=== PATIENT | male | born 1955 | race Two or more races ===

== ENCOUNTER 2020-07-03 08:49 | Emergency (ER) | payer MEDICAID ==
[~2020-07-03] VITALS: Ht 162.6 cm; Wt 65.8 kg
--- NOTE | 2020-07-03 09:24 | NUR ---
DANIELLE VAZQUEZ FROM THE STREETS TO ED BED 01. PER EMS REPORT, T STARTED C/O EPIGASTRIC AREA PAIN SINCE YESTERDAY. 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 GOWNED AND PLACED ON MONITOR. 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 AWAITING MD QUINN.
--- NOTE | 2020-07-03 09:26 | NUR ---
DR BELTRAN AT BEDSIDE FOR EVAL.
[2020-07-03] MEDS ORDERED: MAG HYDROX/AL HYDROX/SIMETH 30 ML UDC PO ONE (09:30)
[2020-07-03] MEDS ORDERED: LIDOCAINE VISCOUS 2% UD 15 ML UDC MM ONE (09:30)
--- NOTE | 2020-07-03 09:35 | NUR ---
IV LINE STARTED. CALLED LAB FOR SPECIMEN GRID TRIMMER
[2020-07-03] MEDS ORDERED: LIDOCAINE VISCOUS 2% UD 15 ML UDC ONE (09:36)
[2020-07-03] MEDS ORDERED: MAG HYDROX/AL HYDROX/SIMETH 30 ML UDC ONE (09:36)
[2020-07-03 09:55] LABS: BASOPHILS % (AUTO) 0.4 % (0.0-2.0); EOSINOPHILS % (AUTO) 0.1 % (0.0-6.0); HEMATOCRIT 44 % (39-51); LYMPHOCYTES # (AUTO) 0.8 /CMM (0.8-4.8); LYMPHOCYTES % (AUTO) 6.2 % (20.0-44.0); MEAN CORPUSCULAR HGB CONC 32 g/dl (31.0-36.0); MEAN CORPUSCULAR VOLUME 86 fL (80-96); MONOCYTES # (AUTO) 0.7 /CMM (0.1-1.30); MONOCYTES % (AUTO) 5.7 % (2.0-12.0); NEUTROPHILS # (AUTO) 11.2 /CMM (1.8-8.9); NEUTROPHILS % (AUTO) 87.6 % (43.0-81.0); PLATELET COUNT (AUTO) 265 /CMM (150-450); RED BLOOD CELL COUNT(AUTO) 5.12 MIL/uL (4.5-6.0); WHITE BLOOD COUNT (AUTO) 12.8 K/uL (4.3-11.0)
[2020-07-03] MEDS ORDERED: KETOROLAC TROMETHAMINE INJ 30 MG/ML VIAL IM ONE (10:00)
[2020-07-03 10:02] LABS: CALCIUM, SERUM 9.3 mg/dL (8.5-10.1); CREATININE 1.2 mg/dL (0.6-1.3); POTASSIUM 3.8 mmol/L (3.5-5.1)
[2020-07-03 10:09] LABS: ALBUMIN 3.9 g/dL (3.4-5.0); BILIRUBIN,DIRECT 0.1 mg/dL (0.0-0.2); BILIRUBIN,TOTAL 0.4 mg/dL (0.2-1.0)
[2020-07-03 11:04] VITALS: BP 165/99
--- NOTE | 2020-07-03 11:04 | NUR ---
Patient discharged to home in stable condition. Written and verbal after care instructions given. Patient verbalizes understanding of instruction.IV removed. Catheter intact and site benign. Pressure and 4x4 applied to site. No bleeding noted.
== END 2020-07-03 11:04 | disposition home or self-care (01) ==
LOC: ER 08:53
DX: R10.13 Epigastric pain (principal); R11.10 Vomiting, unspecified
CPT/HCPCS: 36415; 71045-TC; 80048-TC; 80076-TC; 83690-TC; 85025-TC; 85730-TC

== ENCOUNTER 2021-04-02 08:17 | Emergency (ER) | payer MEDICAID ==
[~2021-04-02] VITALS: Ht 162.6 cm; Wt 64.4 kg
--- NOTE | 2021-04-02 08:25 | NUR ---
BIB 839 PICKED UP FROM [facility] C/O ABDOMINAL PAIN 08/28 X1DAY, VOMITED DARK RED 30MINS OPTIONS ADVISOR. NO VOMITING AT THIS TIME. ABDOMEN SOFT AND NON-DISTENDED. RESPIRATION REGULAR AND UNLABORED. WILL CONTINUE TO MONITOR THE PATIENT. ATTACHED TO THE MONITOR.
--- NOTE | 2021-04-02 08:26 | NUR ---
DR CORTEZ AT THE BEDSIDE
--- NOTE | 2021-04-02 08:48 | NUR ---
X-RAY TECH AT THE BEDSIDE
--- NOTE | 2021-04-02 08:48 | NUR ---
STARTED IV, BLOOD SPECIMEN COLLECTED AND SENT TO THE LAB. THE LINE IS SALINE LOCKED.
[2021-04-02] MEDS ORDERED: ONDANSETRON HCL/PF 4 MG/2 ML VIAL ONE (08:50)
[2021-04-02] MEDS ORDERED: LIDOCAINE VISCOUS 2% UD 15 ML UDC ONE (08:50)
[2021-04-02] MEDS ORDERED: PANTOPRAZOLE 40 MG VIAL ONE (08:50)
--- NOTE | 2021-04-02 08:50 | NUR ---
URINE COLLECTED AND SENT TO LAB
[2021-04-02] MEDS ORDERED: MAG HYDROX/AL HYDROX/SIMETH 30 ML UDC ONE (08:51)
[2021-04-02 08:53] LABS: HEMOGLOBIN 13.9 g/dL (13.5-17.5); MEAN CORPUSCULAR HGB CONC 32 g/dl (31.0-36.0)
[2021-04-02] MEDS ORDERED: MAG HYDROX/AL HYDROX/SIMETH 30 ML UDC PO ONE (09:00)
[2021-04-02] MEDS ORDERED: LIDOCAINE VISCOUS 2% UD 15 ML UDC MM ONE (09:00)
[2021-04-02] MEDS ORDERED: PANTOPRAZOLE 40 MG VIAL IV ONE (09:00)
[2021-04-02] MEDS ORDERED: IV NS 0.9% 1,000 ML BAG IV ONE (09:00)
[2021-04-02] MEDS ORDERED: ONDANSETRON HCL/PF 4 MG/2 ML VIAL IVP ONE (09:00)
[2021-04-02 09:06] LABS: BASOPHILS # (AUTO) 0.1 K/uL (0.0-0.2); BASOPHILS % (AUTO) 0.4 % (0.0-2.0); EOSINOPHILS % (AUTO) 0.1 % (0.0-6.0); HEMATOCRIT 44 % (39-51); LYMPHOCYTES # (AUTO) 1.1 K/uL (0.8-4.8); MEAN CORPUSCULAR VOLUME 84 fL (80-96); MONOCYTES # (AUTO) 0.7 K/uL (0.1-1.30); MONOCYTES % (AUTO) 5.6 % (2.0-12.0); NEUTROPHILS # (AUTO) 10.9 K/uL (1.8-8.9); NEUTROPHILS % (AUTO) 84.9 % (43.0-81.0); PLATELET COUNT (AUTO) 358 K/uL (150-450); RED BLOOD CELL COUNT(AUTO) 5.25 MIL/uL (4.5-6.0); WHITE BLOOD COUNT (AUTO) 12.8 K/uL (4.3-11.0)
[2021-04-02 09:17] LABS: ALBUMIN 3.8 g/dL (3.4-5.0); BILIRUBIN,DIRECT 0.1 mg/dL (0.0-0.2); BILIRUBIN,TOTAL 0.2 mg/dL (0.2-1.0); CALCIUM, SERUM 9.6 mg/dL (8.5-10.1); CREATININE 1.6 mg/dL (0.6-1.3); POTASSIUM 4.3 mmol/L (3.5-5.1); TOTAL PROTEIN, SERUM 8.2 g/dL (6.4-8.2)
[2021-04-02] MEDS ORDERED: PANT20TA2 PO (09:44)
[2021-04-02] MEDS ORDERED: ONDA4TAB5 PO (09:44)
[2021-04-02 10:00] LABS: OCCULT BLOOD STOOL NEGATIVE (NEGATIVE)
--- NOTE | 2021-04-02 10:00 | NUR ---
US TECH AT THE BEDSIDE
--- NOTE | 2021-04-02 11:26 | NUR ---
IV removed. Catheter intact and site benign. Pressure and 4x4 applied to site. No bleeding noted.Patient discharged to home in stable condition. Written and verbal after care instructions given. Patient verbalizes understanding of instruction.
[2021-04-02 11:27] VITALS: BP 141/85
== END 2021-04-02 11:30 | disposition home or self-care (01) ==
LOC: ER 08:19
DX: R10.13 Epigastric pain (principal); R11.2 Nausea with vomiting, unspecified; N28.9 Disorder of kidney and ureter, unspecified; D72.829 Elevated white blood cell count, unspecified; F12.90 Cannabis use, unspecified, uncomplicated; Z79.899 Other long term (current) drug therapy
CPT/HCPCS: 36415; 71045; 76705; 80048; 80076; 80320; 82272; 83690; 85025; 85730; 86850; 93005; 96361; 96374; 96375; 99285; C9113; J2405; J7030; G0480

== ENCOUNTER 2021-12-16 07:50 | Inpatient (IN) | payer MEDICAID ==
[~2021-12-16] VITALS: Ht 162.6 cm; Wt 47.6 kg
[~2021-12-16 07:50] MED LIST: ONDA4TAB5 PO; PANT20TA2 PO
--- NOTE | 2021-12-16 08:05 | NUR ---
BIBRA 89 W/ C/O ABDOMINAL PAIN SINCE LAST NIGHT, RATED 7-8/10 PS. DENIES N/V/D. A/O X3. TO ER BED 12.
--- NOTE | 2021-12-16 08:09 | NUR ---
PHLEB AT BEDSIDE FOR BLOOD DRAW.
[2021-12-16 08:16] LABS: BASOPHILS % (AUTO) 0.2 % (0.0-2.0); EOSINOPHILS % (AUTO) 0.3 % (0.0-6.0); HEMATOCRIT 44 % (39-51); HEMOGLOBIN 13.9 g/dL (13.5-17.5); LYMPHOCYTES # (AUTO) 1.3 K/uL (0.8-4.8); LYMPHOCYTES % (AUTO) 14.4 % (20.0-44.0); MEAN CORPUSCULAR HGB CONC 32 g/dl (31.0-36.0); MEAN CORPUSCULAR VOLUME 82 fL (80-96); MONOCYTES # (AUTO) 0.5 K/uL (0.1-1.30); MONOCYTES % (AUTO) 6.2 % (2.0-12.0); NEUTROPHILS % (AUTO) 78.9 % (43.0-81.0); PLATELET COUNT (AUTO) 226 K/uL (150-450); RED BLOOD CELL COUNT(AUTO) 5.38 MIL/uL (4.5-6.0); WHITE BLOOD COUNT (AUTO) 8.8 K/uL (4.3-11.0)
[2021-12-16] MEDS ORDERED: PANTOPRAZOLE 40 MG VIAL ONE (08:21)
[2021-12-16] MEDS ORDERED: MAG HYDROX/AL HYDROX/SIMETH 30 ML UDC ONE (08:21)
[2021-12-16] MEDS ORDERED: ONDANSETRON HCL/PF 4 MG/2 ML VIAL ONE (08:21)
[2021-12-16] MEDS ORDERED: LIDOCAINE VISCOUS 2% UD 15 ML UDC ONE (08:22)
[2021-12-16] MEDS ORDERED: IV NS 0.9% 1,000 ML BAG IV ONE (08:30)
[2021-12-16] MEDS ORDERED: MAG HYDROX/AL HYDROX/SIMETH 30 ML UDC PO ONE (08:30)
[2021-12-16] MEDS ORDERED: PANTOPRAZOLE 40 MG VIAL IV ONE (08:30)
[2021-12-16] MEDS ORDERED: ONDANSETRON HCL/PF 4 MG/2 ML VIAL IVP ONE (08:30)
[2021-12-16] MEDS ORDERED: LIDOCAINE VISCOUS 2% UD 15 ML UDC MM ONE (08:30)
[2021-12-16 08:32] LABS: CALCIUM, SERUM 8.9 mg/dL (8.5-10.1); CREATININE 1.2 mg/dL (0.6-1.3); POTASSIUM 3.6 mmol/L (3.5-5.1)
[2021-12-16 08:39] LABS: ALBUMIN 3.8 g/dL (3.4-5.0); BILIRUBIN,DIRECT 0.1 mg/dL (0.0-0.2); BILIRUBIN,TOTAL 0.4 mg/dL (0.2-1.0); TOTAL PROTEIN, SERUM 8.2 g/dL (6.4-8.2)
[2021-12-16] MEDS ORDERED: IV NS 0.9% 1,000 ML IV ONE (09:30)
--- NOTE | 2021-12-16 10:28 | NUR ---
CLINICALS FAXED TO [facility]. FAX: [phone] PHONE: [phone]
--- NOTE | 2021-12-16 10:35 | NUR ---
COVID SWAB COLLECTED AND SENT TO LAB
--- NOTE | 2021-12-16 11:15 | NUR ---
DR. KEY ON THE PHONE WITH [facility] ([facility]UL[facility]OLD[facility]OMINA ALFREDITO SCHOFIELD MD.
--- NOTE | 2021-12-16 12:00 | NUR ---
FAXED PT CLINICALS TO [facility] FOR [facility] AWAITING A CALL BACK TO ALLOW FOR PT TRANSPORT.
[2021-12-16 12:10] LABS: BILIRUBIN,URINE NEGATIVE (NEGATIVE); COLOR,URINE YELLOW (YELLOW); LEUKOCYTE ESTERASE ,URINE NEGATIVE (NEGATIVE); NITRITE, URINE NEGATIVE (NEGATIVE); PROTEIN,URINE TRACE mg/dl (NEGATIVE); UGLUCOSE NEGATIVE (NEGATIVE); UROBILINOGEN,URINE 0.2 EU/dL (0.2)
[2021-12-16 13:30] LABS: BACTERIA,URINE None seen /HPF (None Seen); SQUAMOUS EPITHELIAL CELL,UR Rare /HPF (None Seen); WBC,URINE 0-2 /HPF (0-3)
--- NOTE | 2021-12-16 17:37 | NUR ---
GUSTAVO CALLED AND WAS NOTIFIED THAT THE PT STILL DOES NOT HAVE A BED AVAILABLE. SALESPERSON TERRAZZO TILES- [phone]
--- NOTE | 2021-12-16 21:37 | NUR ---
SPOKE TO OPHELIA, LOCOMOTIVE BOILERMAKER AND HAZEL A MESSAGE FOR SCAR TO CALL ME BACK FOR UPDATE
--- NOTE | 2021-12-16 21:47 | NUR ---
OKAY TO ADMIT TO [facility] BUT NO BED AT THIS TIME PER SCAR.
[2021-12-16] MEDS ORDERED: HYDROMORPHONE MDV 0.5 MG in IV D5W 50 ML IV PRN (22:30)
[2021-12-16] MEDS ORDERED: ACETAMINOPHEN 325 MG TABLET PO PRN (22:30)
[2021-12-16] MEDS ORDERED: ONDANSETRON HCL/PF 8 MG in IV D5W 50 ML IVP PRN (22:30)
[2021-12-16] MEDS ORDERED: HYDROCODONE/APAP 5/325MG TABLET PO PRN (22:30)
[2021-12-16] MEDS ORDERED: ZOLPIDEM TARTRATE 5 MG TABLET PO PRN (22:30)
--- NOTE | 2021-12-16 22:30 | NUR ---
PER PERFECTO PATIENT CAN GET ADMITTED W/ TRACKING # [id number]
--- NOTE | 2021-12-17 01:03 | NUR ---
ROOM 324-2
--- NOTE | 2021-12-17 01:11 | NUR ---
report given to rn
[2021-12-17 01:18] VITALS: BP 131/86
--- NOTE | 2021-12-17 01:18 | NUR ---
RN RECIEVING NOTE PATIENT RECEIVED FROM ER VIA [facility]. PATIENT WAS ABLE TO AMBULATE STEADILY TO BED AND BATHROOM. A/OX4. NO S/S OF DISTRESS, BREATHING W/O DIFFICULTY ON RM AIR. NO PAIN NOTED AT THIS TIME. SAFETY MEASURES IN PLACE: BED LOCKED IN PLACE, AT LOWEST POSITION, RAILS UP X2, CALL KC WITHIN REACH. PATIENT WAS ORIENTED TO THE UNIT. BELONGINGS LOGGED INTO SHEET AND PLACED IN CHART. PATIENT WAS GIVEN CALL KC AND INSTRUCTED ON ITS USE. PATIENT EDUCATED ON HIS DISEASE PROCESS AND EXPLAINED TO HIM TO WHY HE IS CURRENTLY NPO. PATIENT IS STABLE; VS WNL. WILL CONTINUE TO MONITOR THE PATIENT.
[2021-12-17 02:00] VITALS: BP 131/86
[2021-12-17] MEDS ORDERED: HYDROMORPHONE 1 MG/1 ML DISP.SYRIN IV PRN (02:00)
[2021-12-17] MEDS: IV D5 LR 1,000 ML IV PRN ×2 (04:59→16:55)
[2021-12-17 06:28] LABS: BASOPHILS % (AUTO) 0.5 % (0.0-2.0); EOSINOPHILS % (AUTO) 1.7 % (0.0-6.0); HEMATOCRIT 39 % (39-51); HEMOGLOBIN 12.7 g/dL (13.5-17.5); LYMPHOCYTES # (AUTO) 1.9 K/uL (0.8-4.8); LYMPHOCYTES % (AUTO) 21.7 % (20.0-44.0); MEAN CORPUSCULAR HGB CONC 32 g/dl (31.0-36.0); MEAN CORPUSCULAR VOLUME 81 fL (80-96); MONOCYTES # (AUTO) 0.6 K/uL (0.1-1.30); MONOCYTES % (AUTO) 7.1 % (2.0-12.0); NEUTROPHILS # (AUTO) 5.9 K/uL (1.8-8.9); PLATELET COUNT (AUTO) 174 K/uL (150-450); RED BLOOD CELL COUNT(AUTO) 4.87 MIL/uL (4.5-6.0); WHITE BLOOD COUNT (AUTO) 8.6 K/uL (4.3-11.0)
--- NOTE | 2021-12-17 06:45 | NUR ---
RN CLOSING NOTE PATIENT IS ASLEEP IN BED. A/OX4. NO S/S OF DISTRESS, BREATHING W/O DIFFICULTY ON ROOM AIR. RAC #18 INTACT AND PATENT W/ D5LR 125ML/HR. SAFETY MEASURES IN PLACE: BED LOCKED, AT LOWEST POSITION, RAILS UP X2, CALL KC WITHIN REACH. REPORT ENDORSED TO AND ACKNOWLEDGED BY DAY SHIFT NURSE FOR SHU.
[2021-12-17 06:49] LABS: BILIRUBIN,TOTAL 0.8 mg/dL (0.2-1.0); CALCIUM, SERUM 8.4 mg/dL (8.5-10.1); POTASSIUM 3.9 mmol/L (3.5-5.1); TOTAL PROTEIN, SERUM 6.8 g/dL (6.4-8.2)
[2021-12-17 07:10] LABS: CHOLESTEROL 206 mg/dL (<200); HDL CHOLESTEROL 54 mg/dL (40-60); LDL 121 mg/dL (0-99); TRIGLYCERIDES 136 mg/dL (30-150)
--- NOTE | 2021-12-17 07:25 | NUR ---
RN NOTE PT RECEIVED IN BED. PT IS A/OX3-4. ON ROOM AIR SHOWING NO S/SX OF RESP DISTRESS. SKIN INTACT. PT IS CURRENTLY NPO EXCEPT MEDS. IV ACCESS NOTED ON RIGHT AC #18 INFUSING D5LR AT 125CC/HR. ALL SAFETY MEASURES IMPLEMENTED. WILL CONTINUE TO MONITOR THROUGHOUT SHIFT.
[2021-12-17 08:00] VITALS: BP 112/48
--- NOTE | 2021-12-17 09:33 | NUR ---
SS consult requested for homelessness. SW will follow up at a later time.
[2021-12-17] MEDS: PANTOPRAZOLE 40 MG VIAL IV SCH (09:50)
[2021-12-17] MEDS ORDERED: IV NS 0.9% 250 ML IV ONE (11:26)
[2021-12-17] MEDS ORDERED: CT SWABBABLE VALVE TRANS SET 1 EA INFUS.SET MC ONE (11:26)
[2021-12-17] MEDS ORDERED: IOHEXOL-300 100 ML VIAL IV ONE (11:26)
--- NOTE | 2021-12-17 15:23 | NUR ---
SS received consult for homelessness. SW attempted to interview pt., but he asked to come back later. SW will follow-up at a later time.
[2021-12-17 16:00] VITALS: BP 142/92
[2021-12-17] MEDS: ENSURE CLEAR 237 ML LIQUID (MIX BERRY) PO SCH (17:10)
--- NOTE | 2021-12-17 18:41 | NUR ---
RN NOTE NO CHANGES IN PT CONDITION DURING SHIFT. PT IS A/OX3-4. ON ROOM AIR SHOWING NO S/SX OF RESP DISTRESS. PT WAS TAKEN DOWN EARLIER DURING DAY FOR CT OF ABDOMEN/PELVIS. PT NOW ON CLEAR LIQUID DIET. IV ACCESS NOTED ON RIGHT AC #18 INFUSING D5LR AT 125CC/HR. ALL SAFETY MEASURES IMPLEMENTED. WILL ENDORSE TO EVENING RN FOR SHU.
--- NOTE | 2021-12-17 19:50 | NUR ---
MS RN OPENING NOTES: RECEIVED PATIENT AWAKE IN BED, BED IN LOW POSITION CALL LIGHTS WITHIN REACH NO COMPLAIN OF PAIN AND DISCOMFORT AT THIS TIME, ON ROOM AIR SATURATING WELL, PATIENT WITH IV LINE AT RAC#18 WITH D5LR@125ML/HR INFUSING WELL, PATIENT KEPT CLEAN AND DRY ALL NEEDS MET WILL CONTINUE TO MONITOR.
[2021-12-17 20:00] VITALS: BP_SYST 121; BP_SYST 123; BP_DIAS 66; BP_DIAS 78
[2021-12-18] MEDS: IV D5 LR 1,000 ML IV PRN (01:44)
--- NOTE | 2021-12-18 06:17 | NUR ---
MS RN CLOSING NOTES: PATIENT SLEEP IN BED COMFORTABLY, AROUSABLE TO VERBAL STIMULI, BED IN LOW POSITION CALL LIGHTS WITHIN REACH, ON ROOM AIR SATURATING WELL, WITH ONGOING IV HYDRATION INFUSING WELL, PATIENT KEPT CLEAN AND DRY ALL NEEDS MET ENDORSE TO INCOMING SHIFT.
[2021-12-18 06:58] LABS: ALBUMIN 2.9 g/dL (3.4-5.0); BILIRUBIN,TOTAL 0.6 mg/dL (0.2-1.0); CALCIUM, SERUM 8.8 mg/dL (8.5-10.1); POTASSIUM 4.4 mmol/L (3.5-5.1); TOTAL PROTEIN, SERUM 6.5 g/dL (6.4-8.2)
[2021-12-18 07:15] LABS: BASOPHILS % (AUTO) 0.9 % (0.0-2.0); EOSINOPHILS % (AUTO) 4.8 % (0.0-6.0); HEMATOCRIT 38 % (39-51); HEMOGLOBIN 12.3 g/dL (13.5-17.5); LYMPHOCYTES # (AUTO) 1.8 K/uL (0.8-4.8); LYMPHOCYTES % (AUTO) 34.8 % (20.0-44.0); MEAN CORPUSCULAR HGB CONC 33 g/dl (31.0-36.0); MEAN CORPUSCULAR VOLUME 80 fL (80-96); MONOCYTES # (AUTO) 0.4 K/uL (0.1-1.30); MONOCYTES % (AUTO) 7.8 % (2.0-12.0); NEUTROPHILS # (AUTO) 2.7 K/uL (1.8-8.9); NEUTROPHILS % (AUTO) 51.7 % (43.0-81.0); PLATELET COUNT (AUTO) 174 K/uL (150-450); RED BLOOD CELL COUNT(AUTO) 4.69 MIL/uL (4.5-6.0); WHITE BLOOD COUNT (AUTO) 5.2 K/uL (4.3-11.0)
--- NOTE | 2021-12-18 07:30 | NUR ---
MS RN OPENING NOTES: RECEIVED PATIENT AWAKE IN BED, ALERT AND ORIENTED X 2. NO SOB OR CARDIAC DISTRESS NOTED, AFEBRILE, ON ROOM AIR AND TOLERATING WELL. DENIED PAIN AT THIS TIME, WITH IV LINE AT RAC#18 WITH D5LR@125ML/HR INFUSING WELL, SAFETY PRECAUTIONS MAINTAINED: BED IN LOWEST AND LOCKED POSITION, SIDE RAILS UP X 2, CALL LIGHT IN EASY REACH FOR PATIENT KEPT CLEAN AND DRY ALL NEEDS MET WILL CONTINUE TO MONITOR.
[2021-12-18 08:00] VITALS: BP 155/77
[2021-12-18] MEDS: ENSURE CLEAR 237 ML LIQUID (MIX BERRY) PO SCH (08:00)
[2021-12-18] MEDS: PANTOPRAZOLE 40 MG VIAL IV SCH (09:20)
--- NOTE | 2021-12-18 15:35 | NUR ---
DISCHARGE NOTES: PATIENT DC. A/O X 3 ABLE TO MAKE NEEDS KNOWN, NO SOB OR CARDIAC DISTRESS NOTED, AFEBRILE. VS WNL. REMOVED IV ACCESS ON LEFT HAAND AND SECURED WITH GAUZE AND TAPE. DISCHARGE INSTRUCTIONS GIVEN TO PATIENT AND INSTRUCTED TO FOLLOW UP WITH PCP, PATIENT VERBALIZED UNDERSTYANDING AND STATED "I WILL GO TO [facility] ON WEDNESDAY TO FOLLOW UP". COASTAL TUG MATE GAVE THE TAP CARD FOR TRANSPO. HOMELESS CHECKLIST DONE AND PT SIGNED. WHITE SHOE EXAMINER JUSTICE WHEELED PT OUT IN THE LOBBY,PT LEFT STABLE IN THE UNIT. IDENTIFICATION BAND REMOVED.
== END 2021-12-18 15:36 | disposition home or self-care (01) | DRG 282 ==
LOC: ER 07:52 → MED 12-17 01:06
PROVIDERS: ADMIT Internal Medicine; ATTEND Internal Medicine
DX: K85.90 Acute pancreatitis without necrosis or infection, unspecified (principal); Z20.822 Contact with and (suspected) exposure to COVID-19
CPT/HCPCS: 36415; 74178; 76705-TC; 80048-TC; 80053-TC; 80061-TC; 80076-TC; 81001; 82150-TC; 83690-TC; 85025-TC; 87081-TC; C9113; C9803; G0378; G0480; J2405; J3490; J7030; J7050; J7060; J7120; Q9967

== ENCOUNTER 2022-07-07 11:31 | Emergency (ER) | payer MEDICARE, OTHER ==
[~2022-07-07] VITALS: Ht 162.6 cm; Wt 52.2 kg
[2022-07-07] MEDS ORDERED: IV NS 0.9% 1,000 ML BAG IV ONE (12:00)
[2022-07-07] MEDS ORDERED: ONDANSETRON HCL/PF 4 MG/2 ML VIAL IVP ONE (12:00)
[2022-07-07] MEDS ORDERED: ONDANSETRON HCL/PF 4 MG/2 ML VIAL ONE (12:15)
[2022-07-07 12:41] LABS: BASOPHILS # (AUTO) 0.1 K/uL (0.0-0.2); BASOPHILS % (AUTO) 0.5 % (0.0-2.0); EOSINOPHILS % (AUTO) 0.8 % (0.0-6.0); HEMATOCRIT 47 % (39-51); HEMOGLOBIN 14.8 g/dL (13.5-17.5); LYMPHOCYTES # (AUTO) 1.2 K/uL (0.8-4.8); LYMPHOCYTES % (AUTO) 11.9 % (20.0-44.0); MEAN CORPUSCULAR HGB CONC 32 g/dl (31.0-36.0); MEAN CORPUSCULAR VOLUME 82 fL (80-96); MONOCYTES # (AUTO) 0.6 K/uL (0.1-1.30); MONOCYTES % (AUTO) 5.5 % (2.0-12.0); NEUTROPHILS # (AUTO) 8.4 K/uL (1.8-8.9); NEUTROPHILS % (AUTO) 81.3 % (43.0-81.0); PLATELET COUNT (AUTO) 342 K/uL (150-450); RED BLOOD CELL COUNT(AUTO) 5.67 MIL/uL (4.5-6.0); WHITE BLOOD COUNT (AUTO) 10.3 K/uL (4.3-11.0)
[2022-07-07 12:57] LABS: ALBUMIN 3.7 g/dL (3.4-5.0); BILIRUBIN,DIRECT 0.2 mg/dL (0.0-0.2); BILIRUBIN,TOTAL 0.8 mg/dL (0.2-1.0); CALCIUM, SERUM 9.7 mg/dL (8.5-10.1); CREATININE 1.6 mg/dL (0.6-1.3); POTASSIUM 4.1 mmol/L (3.5-5.1)
[2022-07-07 15:02] VITALS: BP 101/61
== END 2022-07-07 15:12 | disposition home or self-care (01) ==
LOC: ER 11:33
DX: R10.12 Left upper quadrant pain (principal); R10.32 Left lower quadrant pain; R11.2 Nausea with vomiting, unspecified; Z60.2 Problems related to living alone
CPT/HCPCS: 99285; 74176; 96374; 96361; 99406; 85025; 80048; 83690; 80076; 36415; J2405; J7030

== ENCOUNTER 2023-05-23 11:13 | Emergency (ER) | payer MEDICARE, OTHER ==
[~2023-05-23] VITALS: Ht 162.6 cm; Wt 58.5 kg
[2023-05-23 11:47] VITALS: BP 127/76; TEMP 98.7; O2SAT 100
[2023-05-24] MEDS ORDERED: FAMO-131 PO (07:17)
== END 2023-05-23 15:15 | disposition left against medical advice (07) ==
LOC: ER 11:13
DX: R11.10 Vomiting, unspecified (principal); R19.7 Diarrhea, unspecified; Z53.21 Procedure and treatment not carried out due to patient leaving prior to being seen by health care provider

== ENCOUNTER 2023-05-24 05:44 | Emergency (ER) | payer MEDICARE, OTHER ==
[~2023-05-24] VITALS: Ht 162.6 cm; Wt 54.4 kg
[2023-05-24 05:50] VITALS: BP 149/104; TEMP 97.8; O2SAT 99
[2023-05-24] MEDS ORDERED: FAMO-131 PO (07:17)
[2023-05-24] MEDS ORDERED: FAMOTIDINE (20 MG) 20 MG TABLET ONE (07:25)
[2023-05-24] MEDS ORDERED: FAMOTIDINE (20 MG) 20 MG TABLET PO ONE (07:30)
== END 2023-05-24 07:29 | disposition home or self-care (01) ==
LOC: ER 05:45
DX: R10.13 Epigastric pain (principal); F10.10 Alcohol abuse, uncomplicated; Z60.2 Problems related to living alone; Y90.9 Presence of alcohol in blood, level not specified